=== PATIENT | female | born 1950 | race Caucasian/White ===

== ENCOUNTER → 2016-09-02 | Outpatient (CLI) | payer BC ==
[~2016-09-02] MED LIST: ASPI-232 PO; GLUCTAB7 PO; IBUP-103 PO; MULT-190 PO; OMEG500C2 PO; SIMV20TA5 PO; ZOLP5TAB PO
--- NOTE | 2016-09-02 15:20 | MAMMOGRAPHY REPORT ---
BILATERAL DIGITAL SCREENING MAMMOGRAM WITH CAD: 09/02/2016 CLINICAL HISTORY: Routine screening. Patient has no complaints. TECHNIQUE: Current study was also evaluated with a Computer Aided Detection (CAD) system. Bilatera l CC and MLO views were obtained. COMPARISON: Comparison is made to exams dated: 09/01/2015 mammogram, 08/28/2014 mammogram, 08/27/2013 mammogram, 08/18/2012 mammogram, 08/11/2011 mammogram, and 08/18/2010 mammogram - [facility] nt. BREAST COMPOSITION: There are scattered areas of fibroglandular density in both breasts. FINDINGS: No suspicious masses, calcifications, or areas of architectural distortion are noted in e ither breast. There has been no significant interval change compared to prior exams. A linear scar marker denotes a scar on the right superior breast. Bilateral asymmetries are stable. IMPRESSION: ACR BI-RADS CATEGORY 2: BENIGN There is no mammographic evidence of malignancy. A 1 year screening mammogram is recommended. The p atient will receive written notification of the results. Approximately 10% of breast cancers are not detected with mammography. A negative mammographic repor t should not delay biopsy if a clinically suggestive mass is present. Matilda Harris M.D. /:09/02/2016 12:46:48 Pastoral Worker: Dave Mohan M, [facility] letter sent: Normal 1/2 BI-RADS Code: ACR BI-RADS Category 2: Benign
== END | disposition home or self-care (01) ==
LOC: C.MAMM 10:28
PROVIDERS: ATTEND Obstetrics & Gynecology
DX: Z12.31 Encounter for screening mammogram for malignant neoplasm of breast (principal)

== ENCOUNTER → 2017-09-06 | Outpatient (CLI) | payer BC ==
--- NOTE | 2017-09-07 15:53 | MAMMOGRAPHY REPORT ---
BILATERAL DIGITAL SCREENING MAMMOGRAM TOMOSYNTHESIS WITH CAD: 09/06/2017 CLINICAL HISTORY: Routine screening. Patient has no complaints. TECHNIQUE: Breast tomosynthesis in addition to standard 2D mammography was performed. Current study was also evaluated with a Computer Aided Detection (CAD) system. COMPARISON: Comparison is made to exams dated: 09/02/2016 mammogram, 09/01/2015 mammogram, 08/28/2014 m ammogram, 08/27/2013 mammogram, 08/18/2012 ultrasound, and 08/18/2012 mammogram - [facility] nter. BREAST COMPOSITION: There are scattered areas of fibroglandular density in both breasts. FINDINGS: A linear scar marker overlies the superior right breast. There is a stable nodular asymmet ry in the lateral, anterior left breast, which appears similar dating back to at least 08/27/2013, th erefore likely benign. No new suspicious mass, architectural distortion or cluster of microcalcifica tions is seen. IMPRESSION: ACR BI-RADS CATEGORY 1: NEGATIVE There is no mammographic evidence of malignancy. A 1 year screening mammogram is recommended. The pa tient will receive written notification of the results. Approximately 10% of breast cancers are not detected with mammography. A negative mammographic report should not delay biopsy if a clinically suggestive mass is present. Ailyn Alcantara M.D. ay/:09/06/2017 15:09:30 Hide Measuring Machine Operator: Dave Mitchell M, [facility] letter sent: Normal 1/2 BI-RADS Code: ACR BI-RADS Category 1: Negative
== END | disposition home or self-care (01) ==
LOC: C.MAMM 09:20
PROVIDERS: ATTEND Obstetrics & Gynecology
DX: Z12.31 Encounter for screening mammogram for malignant neoplasm of breast (principal)